=== PATIENT | male | born 1945 | race Caucasian/White ===

== ENCOUNTER → 2020-02-23 | Outpatient (CLI) | payer MEDICARE ==
[~2020-02-23] MED LIST: AMLO-427 PO; APIX5TAB PO; CYAN-25 PO; DOCU-109 PO; HYDR-3164 PO; LOSA-73 PO; OMEG1CAP27 PO; PROP225C2 PO; TAMS0.4C97 PO; VITA400T6 PO
[2020-02-23 15:14] LABS: BASO # 0.1 x10^3/uL (0.0-0.2); BASO % 1 % (0-3); EOS # 0.2 x10^3/uL (0.0-0.7); EOS % 3 % (0-3); HEMATOCRIT 43.7 % (39.0-53.0); HEMOGLOBIN 15.5 g/dL (13.0-17.5); LYMPH # 1.7 x10^3/uL (1.0-4.8); LYMPH % 24 % (24-48); MEAN CORPUSCULAR HEMOGLOBIN 32 pg (25-35); MEAN CORPUSCULAR HGB CONC 36 g/dL (31-37); MEAN CORPUSCULAR VOLUME 89 fL (79-100); MONO # 0.7 x10^3/uL (0.0-1.1); MONO % 10 % (0-9); NEUT # 4.5 x10^3/uL (1.8-7.7); NEUT % 62 % (31-73); PLATELET COUNT 244 x10^3/uL (140-400); RED BLOOD COUNT 4.92 x10^6/uL (4.30-5.70); RED CELL DISTRIBUTION WIDTH 12.3 % (11.5-14.5); WHITE BLOOD COUNT 7.3 x10^3/uL (4.0-11.0)
[2020-02-23 15:38] LABS: ALBUMIN 3.3 g/dL (3.4-5.0); CALCIUM 7.7 mg/dL (8.5-10.1); GFR 72.6; POTASSIUM 3.3 mmol/L (3.5-5.1); TOTAL BILIRUBIN 0.8 mg/dL (0.2-1.0); TOTAL PROTEIN 6.5 g/dL (6.4-8.2)
--- NOTE | 2020-02-23 15:51 | EKG ---
[facility] [address] [place] [address] Test Date: 2020-02-23 Test Time: 15:47:26 Pat Name: RASHID CLEMENTS Department: Room: Gender: M Supplies Packer: LOLA : 1945 Requested By: DAISY BERNAL Order Number: [id number] Reading MD: Michael Gray MD Measurements Intervals [place] Rate: 49 P: 30 MA: 210 QRS: -9 QRSD: 104 T: 21 QT: 610 QTc: 550 Interpretive Statements SINUS BRADYCARDIA LEFTWARD AXIS QRS(T) CONTOUR ABNORMALITY CONSISTENT WITH INFERIOR INFARCT PROBABLY OLD Electronically Signed On 02-27-2020 14:14:37 CDT by Michael Gray MD
== END | disposition home or self-care (01) ==
LOC: SURGPAT 14:31
PROVIDERS: ATTEND Neurological Surgery
DX: Z01.818 Encounter for other preprocedural examination (principal); M47.26 Other spondylosis with radiculopathy, lumbar region; M48.062 Spinal stenosis, lumbar region with neurogenic claudication; R00.1 Bradycardia, unspecified
CPT/HCPCS: 36415; 80053; 85025; 87641; 93005; U0003-CS

== ENCOUNTER 2020-02-29 06:46 | Day surgery (SDC) | payer MEDICARE ==
--- NOTE | 2020-02-28 15:53 | HP ---
ADMIT DATE: 02/29/2020 PREOPERATIVE HISTORY AND PHYSICAL DATE OF SURGERY: 02/29/2020. HISTORY OF PRESENT ILLNESS: The patient is a pleasant 74-year-old who is having difficulty with low back and left leg pain, numbness and weakness. He has had multiple episodes of problems with his current episode starting 09/2019. In the past, he has had episodes of back and leg pain on the right side. The problem is severe with pain, which he rates as 7-8/10 with virtually any activity. Standing increases his pain as does walking. Sitting helps him. He has been taking prednisone recently, which has helped him. He has seen a chiropractor and has physical therapy. He was sent to the pain clinic, but it was felt that problem was too severe and that the patient should see a surgeon. PAST MEDICAL HISTORY: Arthritis, asthma, heart murmur, hypertension, shingles. PAST SURGICAL HISTORY: He denies the past surgical history. FAMILY HISTORY: Cancer, diabetes, and hypertension. SOCIAL HISTORY: He is retired. . Rarely exercises. Denies substance abuse. Smokes currently. Drinks coffee and soda daily. ALLERGIES: No known drug allergies. CURRENT MEDICATIONS: Propafenone, hydrochloride, Flomax, losartan, amlodipine, Eliquis, vitamin E, prostate medications, fish oil, vitamin B12 and prednisone. REVIEW OF SYSTEMS: A 12-point review of systems was obtained and is noncontributory except for that mentioned above. PHYSICAL EXAMINATION: NEUROSURGERY EXAMINATION: GENERAL APPEARANCE: Alert, pleasant, no acute distress. HEAD: Normocephalic and atraumatic. SKIN: Warm and dry. MUSCULOSKELETAL: Lumbar paraspinal muscle bulk is normal, restricted range of motion of the lumbar spine, [id number] tenderness of the lower lumbar spine with palpation, normal range of motion of the lower extremities bilaterally. EXTREMITIES: No clubbing, cyanosis or edema. NEUROLOGIC: Alert and oriented x 3. Normal recent and remote memory. Strength 5/5 in bilateral lower extremities except for left foot dorsiflexion, which was 4/5. Sensory was intact to light touch in bilateral lower extremities, except for decrease in sensation in the dorsum of the left foot. Reflexes were present and symmetric in the lower extremities bilaterally. Negative straight leg raising bilaterally, normal gait. IMAGING: I reviewed a lumbar MRI scan from 10/23/2019. On that study, the principal abnormality is the development of a grade 1 anterolisthesis at L4-L5 along with moderately severe spinal stenosis and severe lateral recess narrowing as well as severe foraminal narrowing. There is also a fairly severe left-sided neural foraminal narrowing at L5-S1 disc, but this was present on his previous MRI scan from 2009. ASSESSMENT/ PLAN: There is a severe lateral recess narrowing at L4-L5 is responsible for his back pain and left leg pain with foot drop. I also obtained lumbar flexion and extension x-rays where I did not see any motion and I at this point would go forward recommending a lumbar microdecompression at L4-L5. I have discussed this with the patient. We have reviewed expected postoperative course and restrictions postoperatively. All questions were answered. DAISY BERNAL MD DR: STEPHANIE/homer JOB#: [id number] / [id number] DEBRA
[~2020-02-29] VITALS: Ht 175.3 cm; Wt 115.7 kg
[~2020-02-29 06:46] MED LIST changes: +BACITRACIN 50,000 UNIT in IV NORMAL SALINE 1000ML BAG 1,000 ML IRR ONE; +BUPIVACAINE-EPI 0.5%-1:200000 MPF 30 ML VIAL. ONE; -DOCU-109 PO; +GELATIN SPONGE SIZE 100. ONE; -HYDR-3164 PO; +KETOROLAC 60 MG/2 ML VIAL. ONE; +THROMBIN TOPICAL 20,000 UNIT SPRAY.SYRN KIT TP ONE
[2020-02-29] MEDS ORDERED: IV RINGERS,LACTATED 1000ML 1,000 ML IV SCH (07:00)
[2020-02-29] MEDS ORDERED: HYDROmorphone 2 MG/ML VIAL IV PRN (07:00)
[2020-02-29] MEDS ORDERED: ceFAZolin 2GM PREMIX 2 GM/50 ML BAG IV ONE (07:00)
[2020-02-29] MEDS ORDERED: ONDANSETRON PF 4 MG/2 ML VIAL. IV PRN (07:00)
[2020-02-29] MEDS ORDERED: MORPHINE SULFATE 2 MG/ML VIAL. IV PRN (07:00)
[2020-02-29] MEDS ORDERED: fentaNYL PF VIAL 100 MCG/2 ML VIAL IV PRN ×2 (07:00)
[2020-02-29] MEDS ORDERED: PROCHLORPERAZINE 10 MG/2 ML VIAL. IV PRN (07:00)
[2020-02-29] MEDS ORDERED: ONDANSETRON PF 4 MG/2 ML VIAL. ONE (08:21)
[2020-02-29] MEDS ORDERED: PROPOFOL 50 ML IV ONE (08:21)
[2020-02-29] MEDS ORDERED: LIDOCAINE 2% PF 5 ML VIAL. ONE (08:21)
[2020-02-29] MEDS ORDERED: fentaNYL PF VIAL 100 MCG/2 ML VIAL ONE ×2 (08:21→11:53)
[2020-02-29] MEDS ORDERED: REMIFENTANIL 2 MG VIAL. IV ONE (08:21)
[2020-02-29] MEDS ORDERED: PROPOFOL 10 MG/ML (20ML) VIAL. IV ONE (08:21)
[2020-02-29] MEDS ORDERED: DEXAMETHASONE SOD PHOS 20 MG/5 ML VIAL. ONE (08:21)
[2020-02-29] MEDS ORDERED: DESFLURANE > 120 MINUTES IH ONE (09:15)
[2020-02-29] MEDS ORDERED: NEOSTIGMINE METHYLSULFATE 5 MG/5 ML SYRINGE. ONE (09:32)
[2020-02-29] MEDS ORDERED: ePHEDrine PF IN SALINE 50 MG/10 ML SYRINGE. IV ONE (11:16)
--- NOTE | 2020-02-29 11:22 | OP ---
DATE OF SURGERY: 02/29/2020 PREOPERATIVE DIAGNOSES: Lateral recess stenosis and severe radiculopathy, L4-L5, left. POSTOPERATIVE DIAGNOSES: Lateral recess stenosis and severe radiculopathy, L4-L5, left. OPERATION PERFORMED: Hemilaminotomy with decompression of dura and nerve root, L4-L5, left. The operation was done with EMG monitoring, fluoroscopy, microscopic dissection. SURGEON: Jason Bernal M.D. TERRITORY MANAGER [employer] SALES: CLAUDIA Caro assisted with the surgery. She assisted with the exposure with the microdecompression as well as the closure. OPERATIVE INDICATIONS: The patient is a pleasant 74-year-old who developed severe intractable back and left leg pain along with a left foot drop. On imaging studies, there was a grade 1 anterolisthesis, which did not move on flexion and extension films along with very large hypertrophic facet, which was encroaching markedly on the spinal canal and markedly compressing the left L5 root in the lateral dura. I recommended lumbar microsurgery. I spoke about the surgery, the risks, technique and expected postoperative course. I also discussed the possibility in the future, he may require an instrumented fusion if the spondylolisthesis worsens, he understood he wished to go ahead. DESCRIPTION OF PROCEDURE: Following general endotracheal anesthesia, the patient was positioned prone on the Vernon table. Lumbar region prepped and draped in standard fashion. JAMIE hose and AV impulse boots were applied for DVT prophylaxis. A microscope was draped. Fluoroscopy was draped and brought into the field. Monitoring was established. Ancef 2 grams was given less than 1 hour prior to initiation of the surgery. Using fluoroscopic guidance, incision was made directly over the L4-L5 interspace, dissected down through skin and subcutaneous tissue. I reflected the paraspinal muscles and placed a [place] microdisk retractor. I brought in the microscope and using the high speed air drill, I burred down a generous hemilaminotomy. As I worked, I was able to visualize the ligamentum flavum from above and below a very large spur which markedly was compressing the root and dura and I gently worked around this, able to free this as large spur up and then pulled it back up off of the dura. I worked inferiorly and performed a foraminotomy. There was considerable hypertrophic bone and the nerve was pushed quite medially. As I worked, I was able to fully decompress the entire region. I trimmed away very thickened ligamentum flavum, palpated the disc which was flat, no discectomy was warranted. I obtained excellent hemostasis. I irrigated copiously with antibiotic solution and I closed the wound in layers with absorbable suture. The skin was closed with 4-0 subcuticular stitch. The operation went very well. I was quite pleased with the surgery. JASON BERNAL MD DR: STEPHANIE/homer JOB#: [id number] / [id number] DEBRA
[2020-02-29] MEDS ORDERED: DOCU-109 PO (11:24)
[2020-02-29] MEDS ORDERED: HYDR-3164 PO (11:24)
--- NOTE | 2020-02-29 11:26 | DISCH ---
DISCHARGE INSTRUCTIONS Condition on Discharge Condition on Discharge: Stable Activity After Discharge Activity Instructions for Disc: Activity as tolerated, Avoid exertion Other activity instructions: no driving for a week Lifting Instructions after Dis: No heavy lifting, No pulling or pushing, Do not lift >10 pounds Diet after Discharge Additional Diet Restrictions: resume home diet Wound Incision Care Wound/Incision Care: Ice to area for comfort Other wound/incision instructi: may remove dressing in 48 hours if dry then may shower, no soaking Contacting the [facility] after DC Call your doctor for: Concerns you may have Follow-Up Follow up with: Dr. Bernal's nurse in 2 weeks [phone] DAISY BERNAL MD February 29, 2020 11:26
[2020-02-29] MEDS ORDERED: HYDROcodone/APAP 5/325MG 1 TAB TABLET ONE (12:03)
[2020-02-29] MEDS ORDERED: HYDROcodone/APAP 5/325MG 1 TAB TABLET PO ONE (12:15)
[2020-02-29 13:00] VITALS: BP 147/58
--- NOTE | 2020-03-01 18:06 | PATHOLOGY ---
[facility] Accession Number: [id number] . 01 Material submitted: . vertebral column - LUMBAR DECOMPRESSION . 01 Clinical history: . Lumbar spondylosis with radiculopathy, stenosis with neurogenic claudication. . 02 Diagnosis: Segments of fibrocartilaginous, fibroadipose, and skeletal muscle tissue and bone, lumbar decompression: - Degenerative changes of fibrocartilaginous tissue. LBQ 03/01/2020 1528 Local . 02 Comment: There is no evidence of an acute inflammatory process or malignancy. (JPM/db; 03/01/2020) . 02 Electronically signed: . Kadeem Henley MD, Pathologist NPI- [id number] . 01 Gross description: . Received in formalin labeled "Piyush Barton, lumbar decompression" is a 5.0 x 2.5 x 0.7 cm aggregate of bailey-pink and bailey-white, rubbery and gritty soft tissue bone. Automatic [employer] Sander tissue is submitted in cassette A1 following decalcification. ([facility] [place]; 02/29/2020) [facility] 03/01/2020 1524 Local . 02 Pathologist provided ICD-10: M51.36 . 02 CPT . 345384, [id number] Specimen Comment: A courtesy copy of this report has been sent to [phone] Specimen Comment: Report sent to Performed at: 01 [facility] [address] [address], [place] [id number] MD David Montiel MD Phone: [phone] Performed at: 02 [facility] [address], [place] [id number] MD Kadeem Henley MD Phone: [phone]
== END 2020-02-29 13:32 | disposition home or self-care (01) ==
LOC: SURG 06:46 → EDUNIT# 08:30 → SURG 13:32
PROVIDERS: ATTEND Neurological Surgery
DX: M48.061 Spinal stenosis, lumbar region without neurogenic claudication (principal); M54.16 Radiculopathy, lumbar region; I10 Essential (primary) hypertension; J45.909 Unspecified asthma, uncomplicated; F17.210 Nicotine dependence, cigarettes, uncomplicated; F15.90 Other stimulant use, unspecified, uncomplicated; Z87.39 Personal history of other diseases of the musculoskeletal system and connective tissue
CPT/HCPCS: 63047; 97161; A7015; J0696; J1100; J1885; J2405; J2704; J2710; J3010; J3490; J7030; 76000